=== PATIENT | female | born 1985 | race American Indian/Alaskan Native ===

== ENCOUNTER 2017-03-11 04:13 | Emergency (ER) | payer SELFPAY ==
[2017-03-11 04:25] VITALS: BP 140/73
--- NOTE | 2017-03-11 07:02 | Emergency Department Report ---
HPI - General Chief Complaint: Dental/Oral Time Seen by Provider: 03/11/17 06:44 - HPI HPI: Patient here reports that she has toothache on the left side of her face and left facial swelling that started Friday morning. She says she's been taking Goody powder and ibuprofen with no relief reports her tooth pain is 10 out of 10 and aching. Denies any sore throat or drooling. She denies any fever or chills. Denies any injury to face. ED Past Medical Hx - Past Medical History Previous Medical History?: No - Surgical History Past Surgical History?: No - Family History Family history: no significant - Social History Smoking Status: Current Every Day Smoker Substance Use Type: None - Medications Home Medications: Home Medications Medication Instructions Recorded Confirmed Last Taken Type Acetaminophen/Codeine 1 tab PO Q6H PRN #20 tab 11/17/14 11/20/14 Unknown Rx [Acetaminophen-Codeine #3 TAB] Ibuprofen [Motrin] 600 mg PO Q8H PRN #60 tablet 11/17/14 11/20/14 11/20/14 10: 00 Rx Sulfamethoxazole/Trimethoprim 1 each PO BID #20 tablet 11/17/14 11/20/14 21:00 Rx [Bactrim Ds] Mupirocin [Bactroban 2% Oint] 1 applic TP BID #15 gm 11/20/14 Unknown Rx Acetaminophen/Codeine [Tylenol 1 tab PO Q6H PRN #14 tab 03/11/17 Unknown Rx /Codeine # 3 tab] Clindamycin [Clindamycin CAP] 300 mg PO Q8H #30 cap 03/11/17 Unknown Rx Ibuprofen [Motrin] 600 mg PO Q8H PRN #20 tablet 03/11/17 Unknown Rx ED Review of Systems ROS: Stated complaint: LT SIDE OF FACE PAIN Other details as noted in HPI Comment: All other systems reviewed and negative Constitutional: denies: chills, fever Eyes: denies: vision change ENT: dental pain. denies: ear pain, throat pain, congestion Respiratory: no symptoms reported Cardiovascular: denies: chest pain, palpitations, edema, syncope Gastrointestinal: denies: abdominal pain, nausea, vomiting Musculoskeletal: denies: back pain, arthralgia Skin: denies: rash Neurological: denies: headache Physical Exam - Physical Exam Vital Signs: Vital Signs 03/11/17 03/11/17 04:24 04:51 Temperature 98.6 F 98.6 F Pulse Rate 82 82 Respiratory 18 18 Rate Blood Pressure 140/73 Blood Pressure 140/73 [Right] O2 Sat by Pulse 100 100 Oximetry General: This is a 31-year-old female well-nourished well-developed in no acute distress. Physical Exam: Head: Normocephalic atraumatic Mouth: Moist, no pharyngeal exudate or erythema. Uvula is midline and oral airway is patent. No gingival enlargement. Positive dental caries. dental tenderness right #14. No induration noted.. Mild left facial swelling. No erythema or induration. No peritonsillar abscesses. Neck: Supple, no C-spine tenderness, no tracheal deviation. Nontender to palpate. no adenopathy Ears: Bilateral TMs pearly draper.bilateral EAC without any redness swelling or drainage Eyes: Bilateral pupils equal and reactive to light, bilateral EOM intact. Bilateral sclera and conjunctiva without injection. Normal accommodation Nose: Mucosa moist, normal mucosa .maxillary and frontal sinus non-tender to palpate. Lungs: Clear to auscultate bilaterally no rhonchi wheezes or rales. Normal work of breathing extremity; No CCE. +2 pulses. No neurovascular compromise Cardiovascular: S1-S2, regular rate rhythm. No murmurs. Skin: clean Dry and intact no rash no lesions Psych: Normal mood and behavior ED Course Vital Signs 03/11/17 03/11/17 04:24 04:51 Temperature 98.6 F 98.6 F Pulse Rate 82 82 Respiratory 18 18 Rate Blood Pressure 140/73 Blood Pressure 140/73 [Right] O2 Sat by Pulse 100 100 Oximetry - Reevaluation(s) Reevaluation #1: 03/11/17 07:43 Patient given Percocet 5/325mg 2 tablets in emergency room. ED Medical Decision Making - Medical Decision Making ED course: She'll with oral cellulitis, toothache and dental caries. She is given Percocet 5/325 mg 2 tablets in emergency room. She is also given referral to [facility] dental clinic. Patient was understanding of discharge diagnosis and treatment plan and discharged home with prescription for Tylenol 3, Motrin and clindamycin. Critical care attestation.: If time is entered above; I have spent that time in minutes in the direct care of this critically ill patient, excluding procedure time. ED Disposition Clinical Impression: Toothache, Dental caries, Oral cellulitis Disposition: DISCHARGED TO HOME OR SELFCARE Is pt being admited?: No Does the pt Need Aspirin: No Condition: Stable Instructions: Dental Caries (ED), Toothache (ED), Cellulitis (ED) Additional Instructions: Take antibiotic as prescribed Follow-up with dentist. Please did not take Tylenol No. 3 [address] driving or operating heavy machinery as this will cause drowsiness. Prescriptions: Acetaminophen/Codeine [Tylenol /Codeine # 3 tab] 1 tab PO Q6H PRN #14 tab PRN Reason: Pain Clindamycin [Clindamycin CAP] 300 mg PO Q8H #30 cap Ibuprofen [Motrin] 600 mg PO Q8H PRN #20 tablet PRN Reason: Pain Referrals: [facility] [Outside] - 2-3 Days Forms: Accompanied Note, Work/School Release Form(ED)
[2017-03-11] MEDS ORDERED: PERCOCET 5/325 PO ONE (07:04)
== END 2017-03-11 07:24 | disposition home or self-care (01) ==
LOC: ED 04:13
DX: K08.89 Other specified disorders of teeth and supporting structures (principal); K02.9 Dental caries, unspecified; K12.2 Cellulitis and abscess of mouth; F17.200 Nicotine dependence, unspecified, uncomplicated
CPT/HCPCS: 99282

== ENCOUNTER 2017-07-28 09:27 | Emergency (ER) | payer BC ==
[2017-07-28] MEDS ORDERED: NORCO 5/325 PO ONE ×2 (10:06→15:01)
[2017-07-28] MEDS ORDERED: ZOFRAN ODT PO ONE (10:07)
--- NOTE | 2017-07-28 10:08 | Emergency Department Report ---
Chief Complaint: Back Pain/Injury Stated Complaint: ABDOMEN PAIN - HPI History of Present Illness: 32-year-old female past medical history obesity presents with sudden onset right -sided flank pain radiating to groin since this morning with associated nausea. Increased urinary frequency and dysuria. Denies fevers or chills, nontoxic- appearing - ROS Review of Systems: Flank pain on the right side and dysuria since this morning - Exam Vital Signs: Vital Signs 07/28/17 07/28/17 09:45 09:53 Temperature 98.5 F 98.5 F Pulse Rate 75 75 Respiratory 18 20 Rate Blood Pressure 109/71 Blood Pressure 109/71 [Right] O2 Sat by Pulse 100 100 Oximetry Physical Exam: Right-sided CVA tenderness MSE screening note: Focused history and physical exam performed. Due to findings the following was ordered: Screening Assessment/Plan/Differential Dx: Right-sided flank pain, possible renal colic 1- This initial assessment/diagnostic orders/clinical plan/ treatment(s) is/are subject to change based on pt's health status, clinical progression and re- assessment by fellow clinical providers in the ED. Further treatment and workup at subsequent clinical provers discretion. Patient/guardians urged not to elope from ED as their condition may be serious if not clinically assessed and managed. 2-CT abdomen noncontrast, urinalysis, basic abdominal labs 3-analgesia and antiemetics ED Disposition for MSE Condition: Stable
[2017-07-28 11:02] LABS: Basophils % (Auto) 0.6 % (0.0-1.8); Eosinophils % (Auto) 0.1 % (0.0-4.3); Mean Corpuscular HGB Conc 33 % (30-34); Mean Corpuscular Hemoglobin 30 pg (28-32); Mean Corpuscular Volume 91 fl (79-97); Platelet Count 276 K/mm3 (140-440); Red Blood Count 4.71 M/mm3 (3.65-5.03); Red Cell Distribution Width 14.2 % (13.2-15.2); White Blood Count 10.1 K/mm3 (4.5-11.0)
[2017-07-28 11:24] LABS: Anion Gap 18 mmol/L; Blood Urea Nitrogen 12 mg/dL (7-17); Calcium 8.6 mg/dL (8.4-10.2); Carbon Dioxide 25 mmol/L (22-30); Chloride 100.1 mmol/L (98-107); Creatine Kinase 83 units/L (30-135); Glucose 86 mg/dL (65-100); Potassium 3.9 mmol/L (3.6-5.0); Sodium 139 mmol/L (137-145)
[2017-07-28 11:40] LABS: Bilirubin,Urine NEG (Negative); Blood,Urine LG (Negative); Ketones,Urine NEG (Negative); Leukocyte Esterase,Urine NEG (Negative); Mucus,Urine FEW /HPF; Nitrite,Urine NEG (Negative); Protein,Urine <15 mg/dL mg/dL (Negative); Urobilinogen,Urine < 2.0 mg/dL (<2.0)
--- NOTE | 2017-07-28 13:02 | Cat Scan Report ---
CT ABDOMEN AND PELVIS WITHOUT CONTRAST INDICATION: Right flank pain. Possible stone. COMPARISON: None similar. FINDINGS: Noncontrast abdomen and pelvis CT performed. LUNG BASES: Unremarkable. ABDOMEN: Please note that sensitivity to detect small visceral lesions is limited due to the absence of intravenous or oral contrast. However, grossly unremarkable unenhanced liver, spleen, gallbladder, pancreas, adrenals, non-aneurysmal abdominal aorta and the IVC. No ascites or size significant adenopathy. Few small, subcentimeter, scattered mesenteric and retroperitoneal lymph nodes noted. Nonopacified GI tract evaluation limited, though grossly nonobstructive. Normal appendix. Mild right perinephric and proximal periureteral fat stranding. Minimal right intrarenal collecting system fullness, though without significant hydronephrosis. No radiopaque calculus in the right kidney. Left kidney however demonstrates a 1-2 mm calculus inferiorly, axial image 83, series 2. No hydronephrosis on the left. PELVIS: Right distal ureter somewhat difficult to accurately follow, though not entirely excluded for a 2 mm right ureterovesical junction calculus near the bladder base, axial image 169, series 2. Few other pelvic calcifications presumed vascular. Non-opacified urinary bladder, uterus, adnexa/ovaries and the rectosigmoid otherwise within normal limits. No free fluid or definite significant adenopathy. Mild lower thoracic spine degenerative spurring. Approximately 1 cm left mid abdominal wall sebaceous cyst. CONCLUSION: 1. Approximately 2 mm right ureterovesical junction calculus possible without significant hydronephrosis. Mild right perinephric stranding noted. 2. Small, 2 mm nonobstructing left renal calculus also seen. Thank you for the opportunity to participate in this patient's care.
[2017-07-28] MEDS ORDERED: NORCO 10/325 ONE (14:30)
--- NOTE | 2017-07-28 14:30 | Emergency Department Report ---
HPI - General Chief Complaint: Back Pain/Injury Time Seen by Provider: 07/28/17 14:29 - HPI HPI: Patient is a 32-year-old female presents to ED complaining of right-sided flank pain for the past 2 days. Patient states yesterday she began there and the pain last night. Patient states she has about 2-3 episodes of vomiting this morning and none since then. Patient states she had a normal bowel movement this morning. She describes pain as colicky throbbing in nature Patient denies fever/chills/chest pain/shortness of breath as coughing/headache/dysuria/ hematuria point other problems. ED Past Medical Hx - Past Medical History Previous Medical History?: No - Surgical History Past Surgical History?: No - Social History Smoking Status: Never Smoker Substance Use Type: None - Medications Home Medications: Home Medications Medication Instructions Recorded Confirmed Last Taken Type Acetaminophen/Codeine 1 tab PO Q6H PRN #20 tab 11/17/14 11/20/14 Unknown Rx [Acetaminophen-Codeine #3 TAB] Ibuprofen [Motrin] 600 mg PO Q8H PRN #60 tablet 11/17/14 11/20/14 11/20/14 10: 00 Rx Mupirocin [Bactroban 2% Oint] 1 applic TP BID #15 gm 11/20/14 Unknown Rx Clindamycin [Clindamycin CAP] 300 mg PO Q8H #30 cap 03/11/17 Unknown Rx Acetaminophen/Codeine [Tylenol 1 tab PO Q6H PRN #14 tab 07/28/17 Unknown Rx /Codeine # 3 tab] Ibuprofen [Motrin 600 MG tab] 600 mg PO Q8H PRN #20 tablet 07/28/17 Unknown Rx Sulfamethoxazole/Trimethoprim 1 each PO BID #20 tablet 07/28/17 Unknown Rx [Bactrim DS TAB] ED Review of Systems ROS: Stated complaint: ABDOMEN PAIN Other details as noted in HPI Constitutional: denies: chills, fever Eyes: denies: eye pain, eye discharge, vision change ENT: denies: ear pain, throat pain Respiratory: denies: cough, shortness of breath, wheezing Cardiovascular: denies: chest pain, palpitations Endocrine: no symptoms reported Gastrointestinal: denies: abdominal pain, nausea, diarrhea Genitourinary: denies: urgency, dysuria, discharge Musculoskeletal: denies: back pain, joint swelling, arthralgia Skin: denies: rash, lesions Neurological: denies: headache, weakness, paresthesias Psychiatric: denies: anxiety, depression Hematological/Lymphatic: denies: easy bleeding, easy bruising Physical Exam - Physical Exam Vital Signs: Vital Signs 07/28/17 07/28/17 09:45 09:53 Temperature 98.5 F 98.5 F Pulse Rate 75 75 Respiratory 18 20 Rate Blood Pressure 109/71 Blood Pressure 109/71 [Right] O2 Sat by Pulse 100 100 Oximetry Physical Exam: GENERAL: Alert and oriented x3, no apparent distress, Normal Gait, atraumatic. HEAD: Head is normocephalic and a-traumatic. EYES: Extra ocular muscles are intact. Pupils are equal, round, and reactive to light and accommodation. EARS: symetrical, atraumatic, non tender, ear canal clear and moderate cerumen, tympanic membrance non inflamed. gross auditory nml bilaterally. NOSE: Nose symetrical, Nontender,Nares appeared normal. MOUTH:Mouth is well hydrated and without lesions. Tonsils nonerythematous or swollen, Uvula midline, Tongue not elevated. Mucous membranes are moist. Posterior pharynx clear, no exudate or lesions. Patent airways. NECK: Supple. Non edematous, No carotid bruits. No lymphadenopathy or thyromegaly. No C-spine tenderness LUNGS: Symetrical with respiration, No wheezing, no rales or crackles, CTAB. HEART: S1, S2 present, regular rate and rhythm without murmur, no rubs, no gallops. Non tender to palpation ABDOMEN: No organomegaly was noted,Positive bowel sounds, soft, and non- distended. Nontender to palpation on all Quadrants, bilat CVA tenderness. BACK: Full range of motion, no spinal tenderness, tender to palpation. PSYCHIATRIC: Mood is congruent with affect, denies suicidal or homicidal ideations. SKIN: Warm and dry, No lesions, No ulceration or induration present. ED Course Vital Signs 07/28/17 07/28/17 09:45 09:53 Temperature 98.5 F 98.5 F Pulse Rate 75 75 Respiratory 18 20 Rate Blood Pressure 109/71 Blood Pressure 109/71 [Right] O2 Sat by Pulse 100 100 Oximetry ED Medical Decision Making - Lab Data Result diagrams: 07/28/17 10:35 07/28/17 10:35 Laboratory Last Values WBC 10.1 K/mm3 (4.5-11.0) 07/28/17 10:35 RBC 4.71 M/mm3 (3.65-5.03) 07/28/17 10:35 Hgb 14.0 gm/dl (10.1-14.3) 07/28/17 10:35 Hct 43.0 % (30.3-42.9) H 07/28/17 10:35 MCV 91 fl (79-97) 07/28/17 10:35 MCH 30 pg (28-32) 07/28/17 10:35 MCHC 33 % (30-34) 07/28/17 10:35 RDW 14.2 % (13.2-15.2) 07/28/17 10:35 Plt Count 276 K/mm3 (140-440) 07/28/17 10:35 Lymph % (Auto) 28.0 % (13.4-35.0) 07/28/17 10:35 [place] % (Auto) 9.1 % (0.0-7.3) H 07/28/17 10:35 Eos % (Auto) 0.1 % (0.0-4.3) 07/28/17 10:35 Baso % (Auto) 0.6 % (0.0-1.8) 07/28/17 10:35 Lymph # 2.8 K/mm3 (1.2-5.4) 07/28/17 10:35 [place] # 0.9 K/mm3 (0.0-0.8) H 07/28/17 10:35 Eos # 0.0 K/mm3 (0.0-0.4) 07/28/17 10:35 Baso # 0.1 K/mm3 (0.0-0.1) 07/28/17 10:35 Seg Neutrophils % 62.2 % (40.0-70.0) 07/28/17 10:35 Seg Neutrophils # 6.3 K/mm3 (1.8-7.7) 07/28/17 10:35 Sodium 139 mmol/L (137-145) 07/28/17 10:35 Potassium 3.9 mmol/L (3.6-5.0) 07/28/17 10:35 Chloride 100.1 mmol/L (98-107) 07/28/17 10:35 Carbon Dioxide 25 mmol/L (22-30) 07/28/17 10:35 Anion Gap 18 mmol/L 07/28/17 10:35 BUN 12 mg/dL (7-17) 07/28/17 10:35 Creatinine 0.8 mg/dL (0.7-1.2) 07/28/17 10:35 Estimated GFR > 60 ml/min 07/28/17 10:35 BUN/Creatinine Ratio 15.00 % 07/28/17 10:35 Glucose 86 mg/dL (65-100) 07/28/17 10:35 Calcium 8.6 mg/dL (8.4-10.2) 07/28/17 10:35 Total Creatine Kinase 83 units/L (30-135) 07/28/17 10:35 Urine Color Yellow (Yellow) 07/28/17 11:15 Urine Turbidity Clear (Clear) 07/28/17 11:15 Urine pH 6.0 (5.0-7.0) 07/28/17 11:15 Ur Specific [place] 1.009 (1.003-1.030) 07/28/17 11:15 Urine Protein <15 mg/dl mg/dL (Negative) 07/28/17 11:15 Urine Glucose (UA) Neg mg/dL (Negative) 07/28/17 11:15 Urine Ketones Neg mg/dL (Negative) 07/28/17 11:15 Urine Blood Lg (Negative) 07/28/17 11:15 Urine Nitrite Neg (Negative) 07/28/17 11:15 Urine Bilirubin Neg (Negative) 07/28/17 11:15 Urine Urobilinogen < 2.0 mg/dL (<2.0) 07/28/17 11:15 Ur Leukocyte Esterase Neg (Negative) 07/28/17 11:15 Urine WBC (Auto) 2.0 /HPF (0.0-6.0) 07/28/17 11:15 Urine RBC (Auto) 27.0 /HPF (0.0-6.0) 07/28/17 11:15 U Epithel Cells (Auto) 1.0 /HPF (0-13.0) 07/28/17 11:15 Urine Mucus Few /HPF 07/28/17 11:15 Urine HCG, Qual Negative (Negative) 07/28/17 11:15 - Radiology Data Radiology results: report reviewed, image reviewed CT ABDOMEN AND PELVIS WITHOUT CONTRAST INDICATION: Right flank pain. Possible stone. COMPARISON: None similar. FINDINGS: Noncontrast abdomen and pelvis CT performed. LUNG BASES: Unremarkable. ABDOMEN: Please note that sensitivity to detect small visceral lesions is limited due to the absence of intravenous or oral contrast. However, grossly unremarkable unenhanced liver, spleen, gallbladder, pancreas, adrenals, non-aneurysmal abdominal aorta and the IVC. No ascites or size significant adenopathy. Few small, subcentimeter, scattered mesenteric and retroperitoneal lymph nodes noted. Nonopacified GI tract evaluation limited, though grossly nonobstructive. Normal appendix. Mild right perinephric and proximal periureteral fat stranding. Minimal right intrarenal collecting system fullness, though without significant hydronephrosis. No radiopaque calculus in the right kidney. Left kidney however demonstrates a 1-2 mm calculus inferiorly, axial image 83, series 2. No hydronephrosis on the left. PELVIS: Right distal ureter somewhat difficult to accurately follow, though not entirely excluded for a 2 mm right ureterovesical junction calculus near the bladder base, axial image 169, series 2. Few other pelvic calcifications presumed vascular. Non-opacified urinary bladder, uterus, adnexa/ovaries and the rectosigmoid otherwise within normal limits. No free fluid or definite significant adenopathy. Mild lower thoracic spine degenerative spurring. Approximately 1 cm left mid abdominal wall sebaceous cyst. CONCLUSION: 1. Approximately 2 mm right ureterovesical junction calculus possible without significant hydronephrosis. Mild right perinephric stranding noted. 2. Small, 2 mm nonobstructing left renal calculus also seen. Thank you for the opportunity to participate in this patient's care. Transcribed By: RS Dictated By: MARIELA AMRTINES MD Electronically Authenticated By: MARIELA MARTINES MD Signed Date/Time: 07/28/17 7710 - Medical Decision Making 32-year-old female presents with left renal stone nonobstructing ED course: The patient received pain control in ED CT abdomen shows 2 stones, see above CBC, CMP, urinalysis and UPT are all negative. Discussed findings with the patient. Discussed with patient to f/u with PCP Critical care attestation.: If time is entered above; I have spent that time in minutes in the direct care of this critically ill patient, excluding procedure time. ED Disposition Clinical Impression: Kidney stones Disposition: TO HOME OR SELFCARE Is pt being admited?: No Does the pt Need Aspirin: No Condition: Stable Instructions: Kidney Stones (ED), How to Strain Your Urine (ED) Additional Instructions: Follow-up with primary care physician. 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
[2017-07-28] MEDS ORDERED: NORCO 5/325 ONE (14:33)
[2017-07-28] MEDS ORDERED: ZOFRAN ODT ONE (14:34)
[2017-07-28] MEDS ORDERED: TORADOL IM ONE (15:02)
[2017-07-28 15:59] VITALS: BP 123/74
== END 2017-07-28 16:01 | disposition home or self-care (01) ==
LOC: ED 09:27
DX: N20.0 Calculus of kidney (principal)
CPT/HCPCS: 36415; 74176; 80048; 81001; 81025; 82550; 85025; 87086; 96372; 99284; J1885; Q0162

== ENCOUNTER 2019-11-16 06:46 | Emergency (ER) | payer BC ==
[2019-11-16] MEDS ORDERED: ONDANSETRON 4 MG ODT TAB PO/SL ONE (06:52)
[2019-11-16] MEDS ORDERED: ONDANSETRON 4 MG ODT TAB ONE (06:55)
[2019-11-16 07:20] LABS: Basophils # (Auto) 0.1 K/mm3 (0.0-0.1); Basophils % (Auto) 0.7 % (0.0-1.8); Eosinophils % (Auto) 0.1 % (0.0-4.3); Hematocrit 43.3 % (30.3-42.9); Hemoglobin 14.4 gm/dl (10.1-14.3); Lymphocytes # (Auto) 2.1 K/mm3 (1.2-5.4); Lymphocytes % (Auto) 19.2 % (13.4-35.0); Mean Corpuscular HGB Conc 33 % (30-34); Mean Corpuscular Volume 91 fl (79-97); Monocytes # (Auto) 0.5 K/mm3 (0.0-0.8); Monocytes % (Auto) 4.6 % (0.0-7.3); Platelet Count 307 K/mm3 (140-440); Red Blood Count 4.75 M/mm3 (3.65-5.03); Red Cell Distribution Width 13.8 % (13.2-15.2)
[2019-11-16 07:34] LABS: Alanine Aminotransferase 25 units/L (7-56); Albumin 4.3 g/dL (3.9-5); BUN/Creatinine Ratio 13; Blood Urea Nitrogen 9 mg/dL (7-17); Calcium 9.5 mg/dL (8.4-10.2); Hemolysis Index 5
[2019-11-16] MEDS ORDERED: ONDANSETRON 4 MG/2 ML INJ IV ONE (07:35)
[2019-11-16] MEDS ORDERED: SODIUM CHLORIDE 0.9% 1000 ML 1,000 ML IV ONE (07:35)
[2019-11-16 08:05] VITALS: BP 109/48
--- NOTE | 2019-11-16 08:05 | Emergency Department Report ---
ED N/V/D HPI - General Chief complaint: Abdominal Pain Stated complaint: VOMITING BODY ACHES Time Seen by Provider: 11/16/19 07:32 Source: patient Mode of arrival: Ambulatory Limitations: No Limitations - History of Present Illness Initial comments: 34-year-old female presents to ED with nausea and vomiting since 1 AM. Patient reports associated mild epigastric pain. Reports fevers and chills. Denies diarrhea. Denies any sick contacts. MD complaint: nausea, vomiting -: During the night Description of Vomiting: food contents, watery Associated Abdominal Pain: Yes Location: epigastric Radiation: none Severity: moderate Consistency: constant Improves with: none Worsens with: none Associated Symptoms: fever/chills - Related Data Previous Rx's Medication Instructions Recorded Last Taken Type Acetaminophen/Codeine 1 tab PO Q6H PRN #20 tab 11/17/14 Unknown Rx [Acetaminophen-Codeine #3 TAB] Ibuprofen [Motrin] 600 mg PO Q8H PRN #60 tablet 11/17/14 11/20/14 10:00 Rx Mupirocin [Bactroban 2% Oint] 1 applic TP BID #15 gm 11/20/14 Unknown Rx Clindamycin [Clindamycin CAP] 300 mg PO Q8H #30 cap 03/11/17 Unknown Rx Acetaminophen/Codeine [Tylenol 1 tab PO Q6H PRN #14 tab 07/28/17 Unknown Rx /Codeine # 3 tab] Ibuprofen [Motrin 600 MG tab] 600 mg PO Q8H PRN #20 tablet 07/28/17 Unknown Rx Sulfamethoxazole/Trimethoprim 1 each PO BID #20 tablet 07/28/17 Unknown Rx [Bactrim DS TAB] Diclofenac Sodium 75 mg PO BID #20 tablet. 06/29/19 Unknown Rx Dicyclomine [Bentyl] 20 mg PO QID PRN #20 tablet 11/16/19 Unknown Rx Ondansetron [Zofran Odt] 4 mg PO Q8HR PRN #20 tab.rapdis 11/16/19 Unknown Rx Promethazine [Phenergan TAB] 25 mg PO Q6HR PRN #20 tab 11/16/19 Unknown Rx Allergies Allergy/AdvReac Type Severity Reaction Status Date / Time No Known Allergies Allergy Verified 11/20/14 11:21 ED Review of Systems ROS: Stated complaint: VOMITING BODY ACHES Other details as noted in HPI Comment: All other systems reviewed and negative Constitutional: chills, fever Gastrointestinal: abdominal pain, nausea, vomiting. denies: diarrhea ED Past Medical Hx - Social History Smoking Status: Current Every Day Smoker Substance Use Type: Alcohol - Medications Home Medications: Home Medications Medication Instructions Recorded Confirmed Last Taken Type Acetaminophen/Codeine 1 tab PO Q6H PRN #20 tab 11/17/14 11/20/14 Unknown Rx [Acetaminophen-Codeine #3 TAB] Ibuprofen [Motrin] 600 mg PO Q8H PRN #60 tablet 11/17/14 11/20/14 11/20/14 10:00 Rx Mupirocin [Bactroban 2% Oint] 1 applic TP BID #15 gm 11/20/14 Unknown Rx Clindamycin [Clindamycin CAP] 300 mg PO Q8H #30 cap 03/11/17 Unknown Rx Acetaminophen/Codeine [Tylenol 1 tab PO Q6H PRN #14 tab 07/28/17 Unknown Rx /Codeine # 3 tab] Ibuprofen [Motrin 600 MG tab] 600 mg PO Q8H PRN #20 tablet 07/28/17 Unknown Rx Sulfamethoxazole/Trimethoprim 1 each PO BID #20 tablet 07/28/17 Unknown Rx [Bactrim DS TAB] Diclofenac Sodium 75 mg PO BID #20 tablet. 06/29/19 Unknown Rx Dicyclomine [Bentyl] 20 mg PO QID PRN #20 tablet 11/16/19 Unknown Rx Ondansetron [Zofran Odt] 4 mg PO Q8HR PRN #20 tab.rapdis 11/16/19 Unknown Rx Promethazine [Phenergan TAB] 25 mg PO Q6HR PRN #20 tab 11/16/19 Unknown Rx ED Physical Exam - General Limitations: No Limitations General appearance: alert, in no apparent distress - Head Head exam: Present: atraumatic, normocephalic - Eye Eye exam: Present: normal appearance - ENT ENT exam: Present: mucous membranes dry - Neck Neck exam: Present: normal inspection - Respiratory Respiratory exam: Present: normal lung sounds bilaterally. Absent: respiratory distress - Cardiovascular Cardiovascular Exam: Present: regular rate, normal rhythm - GI/Abdominal GI/Abdominal exam: Present: soft. Absent: distended, tenderness - Extremities Exam Extremities exam: Present: normal inspection - Neurological Exam Neurological exam: Present: alert, oriented X3 - Psychiatric Psychiatric exam: Present: normal affect, normal mood - Skin Skin exam: Present: warm, dry, intact, normal color ED Course Vital Signs 11/16/19 11/16/19 06:55 08:03 Temperature 97.9 F 98.2 F Pulse Rate 68 82 Respiratory 25 H 18 Rate Blood Pressure 145/111 Blood Pressure 109/48 [Right] O2 Sat by Pulse 100 100 Oximetry - Reevaluation(s) Reevaluation #1: 11/16/19 10:08 PO challenge given. Pt tolerating PO. ED Medical Decision Making - Lab Data Result diagrams: 11/16/19 07:05 11/16/19 07:05 - Medical Decision Making Labs unremarkable. No further emesis here in ED after medication. Pt tolerated PO challenge. Abdomen soft, nontender. Pt comfortable w/ discharge home at this time. Outpt f/u advised. Return precautions given. - Differential Diagnosis pancreatitis, gastritis, gastroenteritis, viral illness Critical care attestation.: If time is entered above; I have spent that time in minutes in the direct care of this critically ill patient, excluding procedure time. ED Disposition Clinical Impression: Nausea & vomiting Disposition: DC-01 TO HOME OR SELFCARE Is pt being admited?: No Condition: Stable Instructions: Acute Nausea and Vomiting (ED), Abdominal Pain (ED) Prescriptions: Dicyclomine [Bentyl] 20 mg PO QID PRN #20 tablet PRN Reason: abdominal pain Promethazine [Phenergan TAB] 25 mg PO Q6HR PRN #20 tab PRN Reason: Nausea Ondansetron [Zofran Odt] 4 mg PO Q8HR PRN #20 tab.rapdis PRN Reason: Vomiting Referrals: PRIMARY CARE, [Primary Care Provider] - 3-5 Days [facility] [Provider Group] - 3-5 Days Forms: Work/School Release Form(ED) Time of Disposition: 10:09
[2019-11-16 09:45] LABS: Bilirubin,Urine NEG (Negative); Blood,Urine NEG (Negative); Color,Urine Yellow (Yellow); Mucus,Urine FEW /HPF; Protein,Urine <15 mg/dL mg/dL (Negative); Urobilinogen,Urine < 2.0 mg/dL (<2.0)
== END 2019-11-16 10:33 | disposition home or self-care (01) ==
LOC: ED 06:46
DX: R11.2 Nausea with vomiting, unspecified (principal); R10.13 Epigastric pain; F17.200 Nicotine dependence, unspecified, uncomplicated; Z79.899 Other long term (current) drug therapy
CPT/HCPCS: 36415; 80053; 81001; 84703; 85025; 96361; 96374; 99283; J2405; J7030; Q0162

== ENCOUNTER 2020-10-06 08:44 | Emergency (ER) | payer BC ==
[2020-10-06 08:58] VITALS: BP 138/79
[2020-10-06] MEDS ORDERED: KETOROLAC 30 MG/1 ML INJ IM ONE (10:34)
[2020-10-06] MEDS ORDERED: predniSONE 50 MG TAB PO ONE (10:34)
--- NOTE | 2020-10-06 10:45 | Emergency Department Report ---
ED Back Pain/Injury HPI - General Chief Complaint: Pain General Stated Complaint: LEFT SIDE BODY PAIN Time Seen by Provider: 10/06/20 10:34 Source: patient Limitations: No Limitations - History of Present Illness Initial Comments: The patient was evaluated in the emergency department for symptoms described in the history of present illness. He/she was evaluated in the context of the global COVID-19 pandemic, which necessitated consideration that the patient might be at risk for infection with the virus that causes COVID-19. Institutional protocols and algorithms that pertain to the evaluation of patients at risk for COVID-19 are in a state of rapid change based on information released by regulatory bodies including the CDC and federal and state organizations. These policies and algorithms were followed during the patient's care in the emergency department. Please note that these policies, procedures and recommendations changed on a rapid basis. 35-year-old -[place] female presents to the emergency room stating that her left side of her back that radiates to her leg has been giving her problems for the last several weeks. Patient denies any injury. She denies any dysuria or hematuria or vaginal discharge. 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 Patient states she is taken Goody powders without much help. Patient reports her last menstrual period was 09/27/2020. She does have a primary care provider but is not able to get in secondary to no appointments available. Patient denies any weakness no injury no falls. MD Complaint: back pain Radiation: left leg Severity: severe Severity scale (0 -10): 8 Consistency: constant Improves With: none Worsens With: sitting upright Associated Symptoms: numbness. denies: weakness, chest pain, cough, difficulty urinating, incontinence, fever/chills, constipation, headaches, abdominal pain, nausea/vomiting - Related Data Previous Rx's Medication Instructions Recorded Last Taken Type Acetaminophen/Codeine 1 tab PO Q6H PRN #20 tab 11/17/14 Unknown Rx [Acetaminophen-Codeine #3 TAB] Ibuprofen [Motrin] 600 mg PO Q8H PRN #60 tablet 11/17/14 11/20/14 10:00 Rx Mupirocin [Bactroban 2% Oint] 1 applic TP BID #15 gm 11/20/14 Unknown Rx Clindamycin [Clindamycin CAP] 300 mg PO Q8H #30 cap 03/11/17 Unknown Rx Acetaminophen/Codeine [Tylenol 1 tab PO Q6H PRN #14 tab 07/28/17 Unknown Rx /Codeine # 3 tab] Ibuprofen [Motrin 600 MG tab] 600 mg PO Q8H PRN #20 tablet 07/28/17 Unknown Rx Sulfamethoxazole/Trimethoprim 1 each PO BID #20 tablet 07/28/17 Unknown Rx [Bactrim DS TAB] Diclofenac Sodium 75 mg PO BID #20 tablet. 06/29/19 Unknown Rx Dicyclomine [Bentyl] 20 mg PO QID PRN #20 tablet 11/16/19 Unknown Rx Ondansetron [Zofran Odt] 4 mg PO Q8HR PRN #20 tab.rapdis 11/16/19 Unknown Rx Promethazine [Phenergan TAB] 25 mg PO Q6HR PRN #20 tab 11/16/19 Unknown Rx Meloxicam [Mobic] 7.5 mg PO QDAY #30 tablet 10/06/20 Unknown Rx predniSONE [Deltasone] 40 mg PO QDAY 5 Days #10 tablet 10/06/20 Unknown Rx Allergies Allergy/AdvReac Type Severity Reaction Status Date / Time No Known Allergies Allergy Verified 10/06/20 08:47 ED Review of Systems ROS: Stated complaint: LEFT SIDE BODY PAIN Other details as noted in HPI ED Past Medical Hx - Past Medical History Previous Medical History?: No - Surgical History Past Surgical History?: No - Social History Smoking Status: Never Smoker Substance Use Type: None - Medications Home Medications: Home Medications Medication Instructions Recorded Confirmed Last Taken Type Acetaminophen/Codeine 1 tab PO Q6H PRN #20 tab 11/17/14 11/20/14 Unknown Rx [Acetaminophen-Codeine #3 TAB] Ibuprofen [Motrin] 600 mg PO Q8H PRN #60 tablet 11/17/14 11/20/14 11/20/14 10:00 Rx Mupirocin [Bactroban 2% Oint] 1 applic TP BID #15 gm 11/20/14 Unknown Rx Clindamycin [Clindamycin CAP] 300 mg PO Q8H #30 cap 03/11/17 Unknown Rx Acetaminophen/Codeine [Tylenol 1 tab PO Q6H PRN #14 tab 07/28/17 Unknown Rx /Codeine # 3 tab] Ibuprofen [Motrin 600 MG tab] 600 mg PO Q8H PRN #20 tablet 07/28/17 Unknown Rx Sulfamethoxazole/Trimethoprim 1 each PO BID #20 tablet 07/28/17 Unknown Rx [Bactrim DS TAB] Diclofenac Sodium 75 mg PO BID #20 tablet. 06/29/19 Unknown Rx Dicyclomine [Bentyl] 20 mg PO QID PRN #20 tablet 11/16/19 Unknown Rx Ondansetron [Zofran Odt] 4 mg PO Q8HR PRN #20 tab.rapdis 11/16/19 Unknown Rx Promethazine [Phenergan TAB] 25 mg PO Q6HR PRN #20 tab 11/16/19 Unknown Rx Meloxicam [Mobic] 7.5 mg PO QDAY #30 tablet 10/06/20 Unknown Rx predniSONE [Deltasone] 40 mg PO QDAY 5 Days #10 tablet 10/06/20 Unknown Rx ED Physical Exam - General Limitations: No Limitations General appearance: alert, in no apparent distress - Head Head exam: Present: atraumatic, normocephalic - Eye Eye exam: Present: normal appearance - ENT ENT exam: Present: mucous membranes moist - Neck Neck exam: Present: normal inspection, full ROM - Respiratory Respiratory exam: Absent: accessory muscle use - Extremities Exam Extremities exam: Present: full ROM, tenderness (Left anterior upper thigh) - Back Exam Back exam: Present: full ROM - Expanded Back Exam Expanded Back exam: Sciatic Notch Tenderness: Left, Positive Straight Leg Raise: Left, Negative Straight Leg Raising: Right - Neurological Exam Neurological exam: Present: alert, oriented X3, normal gait. Absent: motor sensory deficit - Psychiatric Psychiatric exam: Present: normal affect, normal mood - Skin Skin exam: Present: warm, dry, intact, normal color. Absent: rash ED Course Vital Signs 10/06/20 08:50 Temperature 98.4 F Pulse Rate 80 Respiratory 19 Rate Blood Pressure 138/79 O2 Sat by Pulse 95 Oximetry ED Medical Decision Making - Medical Decision Making 35-year-old -[place] female presents to the emergency room stating that her left side of her back that radiates to her leg has been giving her problems for the last several weeks. Patient denies any injury. She denies any dysuria or hematuria or vaginal discharge. 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 Patient states she is taken Goody powders without much help. Patient reports her last menstrual period was 09/27/2020. She does have a [facility] provider but is not able to get in secondary to no appointments available. Patient denies any weakness no injury no falls. Patient was given a Toradol injection and a prednisone pill to see if that would help with her sciatica pain. Patient be discharged home on Mobic 5 days of steroids and a referral to orthopedic provider. As well as a handout for sciatica pain. Critical care attestation.: If time is entered above; I have spent that time in minutes in the direct care of this critically ill patient, excluding procedure time. ED Disposition Clinical Impression: Sciatica of left side Disposition: DC- TO HOME OR SELFCARE Is pt being admited?: No Does the pt Need Aspirin: No Condition: Stable Instructions: Sciatica, [id number] Additional Instructions: Please take medication as prescribed. Increase your water intake advance your diet as tolerated. I am referring her to orthopedic provider handout for sciatica stretches. You can follow-up with your primary care provider as well. Prescriptions: predniSONE [Deltasone] 40 mg PO QDAY 5 Days #10 tablet Meloxicam [Mobic] 7.5 mg PO QDAY #30 tablet Referrals: PRIMARY MD JOAQUIN [Primary Care Provider] - 3-5 Days JOSE MOTA MD [Staff Physician] - 3-5 Days Forms: Work/School Release Form(ED)
== END 2020-10-06 11:09 | disposition home or self-care (01) ==
LOC: ED 08:44
DX: M54.32 Sciatica, left side (principal); Z79.1 Long term (current) use of non-steroidal anti-inflammatories (NSAID); Z79.2 Long term (current) use of antibiotics; Z79.899 Other long term (current) drug therapy
CPT/HCPCS: 96372; 99282; J1885; J7512

== ENCOUNTER 2021-10-04 00:40 | Emergency (ER) | payer BC, OTHER ==
[2021-10-04] MEDS ORDERED: KETOROLAC 30 MG/1 ML INJ IV ONE (01:06)
[2021-10-04] MEDS ORDERED: MORPHINE 4 MG/1 ML INJ IV ONE (01:06)
[2021-10-04] MEDS ORDERED: ONDANSETRON 4 MG/2 ML INJ IV ONE (01:06)
[2021-10-04] MEDS ORDERED: SODIUM CHLORIDE 0.9% 1000 ML 1,000 ML IV ONE (01:06)
--- NOTE | 2021-10-04 01:48 | Emergency Department Report ---
ED Abdominal Pain HPI - General Chief Complaint: Abdominal Pain Stated Complaint: L FLANK PAIN/HEMATEMESIS PUI?: No Source: patient Mode of arrival: Ambulatory Limitations: No Limitations - History of Present Illness MD Complaint: abdominal pain (LLQ ), flank pain (left), other (Intractable nausea and vomiting) -: Sudden, hour(s) (2) Location: LLQ, L flank Radiation: LLQ, L flank Migration to: no migration Severity: severe Severity scale (0 -10): 8 Quality: aching, sharp Consistency: constant Improves With: nothing Worsens With: movement Context: possible food poisoning, other (Possible kidney stones) Associated Symptoms: nausea, vomiting, anorexia. denies: denies other symptoms, diarrhea, fever, chills, constipation, dysuria, hematemesis, hematochezia, melena, hematuria, syncope, other Treatments Prior to Arrival: NSAIDs - Related Data LMP Date: 09/20/21 Previous Rx's Medication Instructions Recorded Last Taken Type Acetaminophen/Codeine 1 tab PO Q6H PRN #20 tab 11/17/14 Unknown Rx [Acetaminophen-Codeine #3 TAB] Ibuprofen [Motrin] 600 mg PO Q8H PRN #60 tablet 11/17/14 11/20/14 10:00 Rx Mupirocin [Bactroban 2% Oint] 1 applic TP BID #15 gm 11/20/14 Unknown Rx Clindamycin [Clindamycin CAP] 300 mg PO Q8H #30 cap 03/11/17 Unknown Rx Acetaminophen/Codeine [Tylenol 1 tab PO Q6H PRN #14 tab 07/28/17 Unknown Rx /Codeine # 3 tab] Ibuprofen [Motrin 600 MG tab] 600 mg PO Q8H PRN #20 tablet 07/28/17 Unknown Rx Sulfamethoxazole/Trimethoprim 1 each PO BID #20 tablet 07/28/17 Unknown Rx [Bactrim DS TAB] Diclofenac Sodium 75 mg PO BID #20 tablet. 06/29/19 Unknown Rx Dicyclomine [Bentyl] 20 mg PO QID PRN #20 tablet 11/16/19 Unknown Rx Ondansetron [Zofran Odt] 4 mg PO Q8HR PRN #20 tab.rapdis 11/16/19 Unknown Rx Promethazine [Phenergan TAB] 25 mg PO Q6HR PRN #20 tab 11/16/19 Unknown Rx Meloxicam [Mobic] 7.5 mg PO QDAY #30 tablet 10/06/20 Unknown Rx predniSONE [Deltasone] 40 mg PO QDAY 5 Days #10 tablet 10/06/20 Unknown Rx Ketorolac [Toradol] 10 mg PO Q8H PRN #20 tablet 10/04/21 Unknown Rx Ondansetron [Zofran Odt] 4 mg PO Q6HR PRN #20 tab.rapdis 10/04/21 Unknown Rx Tamsulosin [Flomax] 0.4 mg PO QDAY #15 cap 10/04/21 Unknown Rx traMADoL [Ultram] 50 mg PO Q6HR PRN #15 tablet 10/04/21 Unknown Rx Allergies Allergy/AdvReac Type Severity Reaction Status Date / Time No Known Allergies Allergy Verified 10/06/20 08:47 ED Review of Systems ROS: Stated complaint: L FLANK PAIN/HEMATEMESIS Other details as noted in HPI Constitutional: malaise. denies: chills, fever Eyes: denies: eye pain, eye discharge, vision change ENT: denies: ear pain, throat pain Respiratory: denies: cough, shortness of breath, wheezing Cardiovascular: denies: chest pain, palpitations Endocrine: no symptoms reported Gastrointestinal: abdominal pain (Left flank and LLQ area), nausea, vomiting. denies: diarrhea, hematemesis, melena, hematochezia Genitourinary: denies: urgency, dysuria, discharge Musculoskeletal: denies: back pain, joint swelling, arthralgia Skin: denies: rash, lesions Neurological: denies: headache, weakness, paresthesias Psychiatric: denies: anxiety, depression Hematological/Lymphatic: denies: easy bleeding, easy bruising ED Past Medical Hx - Past Medical History Previous Medical History?: No - Surgical History Past Surgical History?: No - Social History Smoking Status: Never Smoker Substance Use Type: None - Medications Home Medications: Home Medications Medication Instructions Recorded Confirmed Last Taken Type Acetaminophen/Codeine 1 tab PO Q6H PRN #20 tab 11/17/14 11/20/14 Unknown Rx [Acetaminophen-Codeine #3 TAB] Ibuprofen [Motrin] 600 mg PO Q8H PRN #60 tablet 11/17/14 11/20/14 11/20/14 10:00 Rx Mupirocin [Bactroban 2% Oint] 1 applic TP BID #15 gm 11/20/14 Unknown Rx Clindamycin [Clindamycin CAP] 300 mg PO Q8H #30 cap 03/11/17 Unknown Rx Acetaminophen/Codeine [Tylenol 1 tab PO Q6H PRN #14 tab 07/28/17 Unknown Rx /Codeine # 3 tab] Ibuprofen [Motrin 600 MG tab] 600 mg PO Q8H PRN #20 tablet 07/28/17 Unknown Rx Sulfamethoxazole/Trimethoprim 1 each PO BID #20 tablet 07/28/17 Unknown Rx [Bactrim DS TAB] Diclofenac Sodium 75 mg PO BID #20 tablet.dr 06/29/19 Unknown Rx Dicyclomine [Bentyl] 20 mg PO QID PRN #20 tablet 11/16/19 Unknown Rx Ondansetron [Zofran Odt] 4 mg PO Q8HR PRN #20 tab.rapdis 11/16/19 Unknown Rx Promethazine [Phenergan TAB] 25 mg PO Q6HR PRN #20 tab 11/16/19 Unknown Rx Meloxicam [Mobic] 7.5 mg PO QDAY #30 tablet 10/06/20 Unknown Rx predniSONE [Deltasone] 40 mg PO QDAY 5 Days #10 tablet 10/06/20 Unknown Rx Ketorolac [Toradol] 10 mg PO Q8H PRN #20 tablet 10/04/21 Unknown Rx Ondansetron [Zofran Odt] 4 mg PO Q6HR PRN #20 tab.rapdis 10/04/21 Unknown Rx Tamsulosin [Flomax] 0.4 mg PO QDAY #15 cap 10/04/21 Unknown Rx traMADoL [Ultram] 50 mg PO Q6HR PRN #15 tablet 10/04/21 Unknown Rx ED Physical Exam - General Limitations: No Limitations General appearance: alert, in no apparent distress, anxious - Head Head exam: Present: atraumatic, normocephalic, normal inspection - Eye Eye exam: Present: normal appearance, PERRL, EOMI Pupils: Present: normal accommodation - ENT ENT exam: Present: normal exam, normal orophraynx, mucous membranes moist, TM's normal bilaterally, normal external ear exam - Neck Neck exam: Present: normal inspection, full ROM. Absent: tenderness, lymphadenopathy - Respiratory Respiratory exam: Present: normal lung sounds bilaterally. Absent: respiratory distress, wheezes, rales, rhonchi, chest wall tenderness, accessory muscle use, decreased breath sounds, prolonged expiratory - Cardiovascular Cardiovascular Exam: Present: regular rate, normal rhythm, normal heart sounds. Absent: systolic murmur, diastolic murmur, rubs, gallop - GI/Abdominal GI/Abdominal exam: Present: soft, tenderness (Palpable LLQ and left flank tenderness), normal bowel sounds. Absent: guarding, rebound, rigid, hyperactive bowel sounds, hypoactive bowel sounds, organomegaly, mass - Extremities Exam Extremities exam: Present: normal inspection, full ROM, normal capillary refill. Absent: tenderness, pedal edema, joint swelling, calf tenderness - Back Exam Back exam: Present: normal inspection, full ROM, paraspinal tenderness. Absent: tenderness, CVA tenderness (R), CVA tenderness (L), muscle spasm, vertebral tenderness - Neurological Exam Neurological exam: Present: alert, oriented X3, CN II-XII intact, normal gait, reflexes normal - Psychiatric Psychiatric exam: Present: normal affect, normal mood, anxious - Skin Skin exam: Present: warm, dry, intact, normal color. Absent: rash ED Course Vital Signs 10/04/21 00:43 Temperature 98.4 F Pulse Rate 79 Respiratory 24 Rate Blood Pressure 152/78 [Left] O2 Sat by Pulse 100 Oximetry ED Medical Decision Making - Lab Data Result diagrams: 10/04/21 01:35 10/04/21 01:35 - Radiology Data [facility] [address] [place] [address] Cat Scan Report Signed Patient: GIGI GIBBS MR#: [id number] : 1985 Acct:[id number] Age/Sex: 36 / F ADM Date: 10/04/21 Loc: ED Attending Dr: Ordering Physician: TALISHA MAYEN Date of Service: 10/04/21 Procedure(s): CT abdomen pelvis w con Accession Number(s): [id number] cc: TALISHA MAYEN CT OF THE ABDOMEN AND PELVIS WITH INTRAVENOUS CONTRAST INDICATION / CLINICAL INFORMATION: Left lower quadrant and left flank pain. TECHNIQUE: The patient received 100 cc Omnipaque [address] scans at this location are performed using CT dose reduction for ALARA by means of automated exposure control. COMPARISON: 07/28/17. FINDINGS: ABDOMEN: There is a delayed left nephrogram with mild left pelvocaliectasis and ureterectasis. There is moderate left perinephric soft tissue stranding/fluid. The right kidney is normal. The liver, spleen, gallbladder, bile ducts, pancreas, adrenal glands and bowel demonstrate no significant abnormality. The aorta is normal. No adenopathy is present. The lung bases are clear. PELVIS: The left ureter is mildly dilated to near the ureterovesical junction. There is a 2 mm calculus at that site, best seen on axial image #163 of series #2. The distal right ureter and urinary bladder are normal. The uterus and ovaries are unremarkable. A normal appendix is present and there is no evidence of diverticulitis. No abnormal mass or fluid collection is seen. I do not identify a hernia. There is minimal lumbar spondylosis. IMPRESSION: 2 mm calculus near the left ureterovesical junction is causing mild hydronephrosis and moderate perinephric soft tissue stranding/fluid. Signer Name: Saji Marti MD Signed: 10/04/2021 4:48 AM Workstation Name: [id number] Transcribed By: RT Dictated By: Saji Marti MD Electronically Authenticated By: Saji Marti MD Signed Date/Time: 10/04/21447 DD/ 3 TD/TT: Critical care attestation.: If time is entered above; I have spent that time in minutes in the direct care of this critically ill patient, excluding procedure time. ED Disposition Clinical Impression: Acute left flank pain, Nausea and vomiting in adult patient, Kidney stone on left side Disposition: 01 HOME / SELF CARE / HOMELESS Is pt being admited?: No Does the pt Need Aspirin: No Condition: Stable Instructions: Abdominal Pain (ED), Renal Colic, [id number], Flank Pain, Adult, [id number], Nausea and Vomiting, Adult, [id number], Kidney Stones, [id number] Additional Instructions: All lab test results were reviewed and are all nonactionable. The abdomen pelvis CT scan with contrast showed 2 mm calculus near the left ureterovesical junction is causing mild hydronephrosis and moderate perinephric soft tissue stranding/fluid. This should be able to pass easily with increased fluid intake. Therefore take medications with food, drink plenty of fluids and follow-up with your primary care physician or to the urologist Dr. Russell as advised. Contact Dr. Russell's office today to schedule a follow-up appointment. Return to the ED immediately if symptoms get worse. Prescriptions: Tamsulosin [Flomax] 0.4 mg PO QDAY #15 cap Ketorolac [Toradol] 10 mg PO Q8H PRN #20 tablet PRN Reason: Pain traMADoL [Ultram] 50 mg PO Q6HR PRN #15 tablet PRN Reason: Pain Ondansetron [Zofran Odt] 4 mg PO Q6HR PRN #20 tab.rapdis PRN Reason: Nausea Referrals: HUNTER RUSSELL MD [Staff Physician] - 3-5 Days Forms: Work/School Release Form(ED) Time of Disposition: 07:03 Print Language: IRISH
[2021-10-04 02:19] LABS: Alanine Aminotransferase 22 units/L (7-56); Albumin 4.2 g/dL (3.9-5); BUN/Creatinine Ratio 11; Basophils % (Auto) 0.1 % (0.0-1.8); Blood Urea Nitrogen 11 mg/dL (7-17); Calcium 8.9 mg/dL (8.4-10.2); Eosinophils # (Auto) 0.1 K/mm3 (0.0-0.4); Eosinophils % (Auto) 1.1 % (0.0-4.3); Hematocrit 39.4 % (30.3-42.9); Hemoglobin 13.1 gm/dl (10.1-14.3); Hemolysis Index 2; Lymphocytes # (Auto) 3.1 K/mm3 (1.2-5.4); Lymphocytes % (Auto) 34.2 % (13.4-35.0); Mean Corpuscular HGB Conc 33 % (30-34); Mean Corpuscular Volume 92 fl (79-97); Monocytes # (Auto) 0.8 K/mm3 (0.0-0.8); Monocytes % (Auto) 8.2 % (0.0-7.3); Platelet Count 315 K/mm3 (140-440); Red Cell Distribution Width 13.7 % (13.2-15.2)
--- NOTE | 2021-10-04 04:53 | Cat Scan Report ---
CT OF THE ABDOMEN AND PELVIS WITH INTRAVENOUS CONTRAST INDICATION / CLINICAL INFORMATION: Left lower quadrant and left flank pain. TECHNIQUE: The patient received 100 cc Omnipaque [address] scans at this location are performed using CT dose reduction for ALARA by means of automated exposure control. COMPARISON: 07/28/17. FINDINGS: ABDOMEN: There is a delayed left nephrogram with mild left pelvocaliectasis and ureterectasis. There is moderate left perinephric soft tissue stranding/fluid. The right kidney is normal. The liver, spleen, gallbladder, bile ducts, pancreas, adrenal glands and bowel demonstrate no signifi cant abnormality. The aorta is normal. No adenopathy is present. The lung bases are clear. PELVIS: The left ureter is mildly dilated to near the ureterovesical junction. There is a 2 mm calcul us at that site, best seen on axial image #163 of series #2. The distal right ureter and urinary blad helio are normal. The uterus and ovaries are unremarkable. A normal appendix is present and there is no evidence of div erticulitis. No abnormal mass or fluid collection is seen. I do not identify a hernia. There is minim al lumbar spondylosis. IMPRESSION: 2 mm calculus near the left ureterovesical junction is causing mild hydronephrosis and mo derate perinephric soft tissue stranding/fluid. Signer Name: Saji Marti MD Signed: 10/04/2021 4:48 AM Workstation Name: [id number]
[2021-10-04] MEDS ORDERED: cefTRIAXone/NS 1 GM/50 ML 1 GM/50 ML BAG IV ONE (05:30)
[2021-10-04 06:32] LABS: Bilirubin,Urine NEG (Negative); Blood,Urine NEG (Negative); Color,Urine Yellow (Yellow); Mucus,Urine FEW /HPF; Protein,Urine <15 mg/dL mg/dL (Negative); Urobilinogen,Urine < 2.0 mg/dL (<2.0)
[2021-10-04 07:30] VITALS: BP 133/71
== END 2021-10-04 07:28 | disposition home or self-care (01) ==
LOC: ED 00:40
DX: N20.0 Calculus of kidney (principal); Z79.899 Other long term (current) drug therapy
CPT/HCPCS: 36415; 74177; 80053; 81001; 83690; 84703; 85025; 96361; 96374; 96375; 99284; J1885; J2270; J2405; J7030; Q9967; Q0162